=== PATIENT | female | born 1940 | race Hispanic/Latino ===

== ENCOUNTER 2017-07-29 08:48 | Emergency (ER) | payer MEDICARE ==
[~2017-07-29] VITALS: Ht 157.5 cm; Wt 174.6 kg
[2017-07-29] MEDS ORDERED: SODIUM CHLORIDE 0.9% 1000ML 1,000 ML IV STA (09:06)
[2017-07-29] MEDS ORDERED: ONDANSETRON HCL INJ 2 MG/ML VIAL IV STA (09:06)
[2017-07-29] MEDS ORDERED: MORPHINE SULFATE 4 MG/ML SYR IV ONE (09:15)
[2017-07-29 10:05] LABS: BASOPHILS % 0.1 % (0.0-1.0); EOSINOPHILS # (AUTO) 0.1 (0.0-0.4); EOSINOPHILS % 0.6 % (0.0-6.0); HEMATOCRIT 38.1 % (34.2-44.1); HEMOGLOBIN 12.4 g/dL (12.0-16.0); LYMPHOCYTES # (AUTO) 0.4 (1.0-3.2); LYMPHOCYTES % 2.8 % (18.0-39.1); MEAN CORPUSCULAR HEMOGLOBIN 31.2 pg (28-32); MEAN CORPUSCULAR HGB CONC 32.5 g/dL (31-35); MONOCYTES # (AUTO) 0.5 (0.2-0.8); MONOCYTES % 3.5 % (4.4-11.3); NEUTROPHILS # (AUTO) 12.3 (2.1-6.9); NEUTROPHILS % 91.3 % (38.7-80.0); PLATELET COUNT 307 x10e3/uL (140-360); RED BLOOD COUNT 3.97 x10e6/uL (3.6-5.1)
[2017-07-29] MEDS ORDERED: MORPHINE SULFATE 2 MG/ML SYR ONE (10:07)
[2017-07-29 10:21] LABS: ALBUMIN 3.5 g/dL (3.5-5.0); ALBUMIN/GLOBULIN RATIO 0.7 (0.8-2.0); ANION GAP 15.3 mmol/L (8-16); CALCIUM 9.6 mg/dL (8.4-10.2); POTASSIUM 4.3 mmol/L (3.5-5.1)
--- NOTE | 2017-07-29 11:12 | Diagnostic Imaging Report ---
PROCEDURE: A single AP view of the chest. COMPARISON: None. INDICATIONS: CHEST PAIN, EPIGASTRIC PAIN FINDINGS: Lines/tubes: None. Lungs: The lungs are well inflated. Central vascular congestion with diffuse interstitial opacities. Pleura: There is no pleural effusion or pneumothorax. Heart and mediastinum: Large 11.1 cm lucency overlying the cardiac silhouette likely representing a hiatal hernia. The cardiac silhouette is mildly enlarged. Bones: No acute bony abnormality. IMPRESSION: 1. Mild cardiomegaly with mild interstitial edema. 2. Large hiatal hernia. Dictated by: Buzz Benitez M.D. on 07/29/2017 at 11:22 Electronically approved by: Buzz Benitez M.D. on 07/29/2017 at 11:22
[2017-07-29 11:22] LABS: BILIRUBIN,URINE NEGATIVE (NEGATIVE); COLOR,URINE YELLOW (YELLOW); KETONES,URINE NEGATIVE (NEGATIVE); LEUKOCYTE ESTERASE ,URINE TRACE (NEGATIVE); NITRITE,URINE NEGATIVE (NEGATIVE); PROTEIN,URINE DIPSTICK NEGATIVE (NEGATIVE); URINE UROBILINOGEN 0.2 mg/dL (0.2 - 1)
[2017-07-29 11:32] LABS: CLARITY,URINE SL CLOUDY (CLEAR)
[2017-07-29 11:47] LABS: EPITHELIAL CELLS,URINE MODERATE /LPF
[2017-07-29 11:48] LABS: BACTERIA,URINE RARE /HPF; RBC,URINE 0-5 /HPF (0-5); TRANSITIONAL EPI CELLS,URINE RARE
--- NOTE | 2017-07-29 11:49 | Diagnostic Imaging Report ---
PROCEDURE: CT ABDOMEN AND PELVIS WITH CONTRAST TECHNIQUE: The abdomen and pelvis were scanned utilizing a multidetector helical scanner from the diaphragm to the lesser trochanter after the IV administration of 100 cc of Isovue 370 and the oral administration of water. Coronal and sagittal multiplanar reformations were obtained. DLP: 1507.7 mGy-cm COMPARISON: None. INDICATIONS: Abdomen pain FINDINGS: LOWER THORAX: Large hiatal hernia containing the gastric fundus. Adjacent left lower lobe atelectasis. HEPATOBILIARY: No focal hepatic lesions. No biliary ductal dilatation. The gallbladder is absent. SPLEEN: No splenomegaly. PANCREAS: No focal masses or ductal dilatation. ADRENALS: No adrenal nodules. KIDNEYS/URETERS: No hydronephrosis, stones, or solid mass lesions. PELVIC ORGANS/BLADDER: Unremarkable. PERITONEUM / RETROPERITONEUM: No free air or fluid. LYMPH NODES: No lymphadenopathy. VESSELS: Moderate scattered atherosclerotic calcifications. No abdominal aortic aneurysm. GI TRACT: No distention or wall thickening. The appendix is normal. Scattered colonic diverticula without evidence of diverticulitis. BONES AND SOFT TISSUES: Multilevel degenerative changes of the spine including large L1 inferior endplate and L4 superior endplate Schmorl's nodes. IMPRESSION: 1. No acute abnormalities. 2. Large hiatal hernia. 3. Colonic diverticula without evidence of diverticulitis. Dictated by: Buzz Benitez M.D. on 07/29/2017 at 11:58 Electronically approved by: Buzz Benitez M.D. on 07/29/2017 at 11:58
[2017-07-29 12:36] VITALS: BP 138/60
[2017-07-29] MEDS ORDERED: IOPAMIDOL 370 MG/ML 200 ML INFUS..BTL INJ ONE (19:47)
[2017-07-29] MEDS ORDERED: SODIUM CHLORIDE 0.9% 50ML 50 ML ONE (19:47)
== END 2017-07-29 12:50 | disposition home or self-care (01) ==
LOC: ER 08:48
DX: R10.9 Unspecified abdominal pain (principal); K44.9 Diaphragmatic hernia without obstruction or gangrene; K57.90 Diverticulosis of intestine, part unspecified, without perforation or abscess without bleeding; E86.0 Dehydration; I51.7 Cardiomegaly
CPT/HCPCS: 36415; 71045; 74177; 80053; 81001; 82550; 82553; 83690; 84484; 85025; 87086; 93005; 96360; 96374; 99284; J2270; J2405; J7030; Q9967

== ENCOUNTER 2018-05-11 12:15 | Emergency (ER) | payer MEDICARE, OTHER ==
[~2018-05-11] VITALS: Ht 162.6 cm; Wt 136.1 kg
[2018-05-11] MEDS ORDERED: TRAMADOL HCL 50 MG TAB PO ONE (12:30)
[2018-05-11] MEDS ORDERED: TRAMADOL HCL 50 MG TAB ONE (13:01)
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
[2018-05-11] MEDS ORDERED: ONDANSETRON HCL INJ 2 MG/ML VIAL IV STA (14:03)
[2018-05-11] MEDS ORDERED: MORPHINE SULFATE 2 MG/ML SYR IV STA (14:03)
[2018-05-11] MEDS ORDERED: SODIUM CHLORIDE 0.9% 1000ML 1,000 ML IV STA (14:03)
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
[2018-05-11 14:28] LABS: BASOPHILS # (AUTO) 0.1 (0.0-0.1); BASOPHILS % 0.4 % (0.0-1.0); EOSINOPHILS # (AUTO) 0.4 (0.0-0.4); EOSINOPHILS % 2.6 % (0.0-6.0); HEMATOCRIT 35.9 % (34.2-44.1); LYMPHOCYTES % 11.7 % (18.0-39.1); MEAN CORPUSCULAR HEMOGLOBIN 29.1 pg (28-32); MEAN CORPUSCULAR HGB CONC 30.6 g/dL (31-35); MONOCYTES # (AUTO) 1.1 (0.2-0.8); MONOCYTES % 6.6 % (4.4-11.3); NEUTROPHILS # (AUTO) 13.3 (2.1-6.9); NEUTROPHILS % 78.2 % (38.7-80.0); PLATELET COUNT 298 x10e3/uL (140-360); RED BLOOD COUNT 3.78 x10e6/uL (3.6-5.1); RED CELL DISTRIBUTION WIDTH 14.6 % (11.7-14.4)
[2018-05-11 14:58] LABS: ALBUMIN 3.6 g/dL (3.5-5.0); ALBUMIN/GLOBULIN RATIO 0.7 (0.8-2.0); ANION GAP 14.4 mmol/L (8-16); CALCIUM 10.1 mg/dL (8.4-10.2); CREATININE, SERUM 1.18 mg/dL (0.57-1.11); POTASSIUM 4.4 mmol/L (3.5-5.1)
[2018-05-11 15:05] LABS: CREATINE KINASE MB 1.8 ng/mL (0-5.0)
== END 2018-05-11 14:40 | disposition other institution (70) ==
LOC: ER 12:15
DX: M54.2 Cervicalgia (principal); S16.1XXA Strain of muscle, fascia and tendon at neck level, initial encounter; S20.211A Contusion of right front wall of thorax, initial encounter; S22.41XA Multiple fractures of ribs, right side, initial encounter for closed fracture; S70.01XA Contusion of right hip, initial encounter; S80.01XA Contusion of right knee, initial encounter; S90.31XA Contusion of right foot, initial encounter; V43.62XA Car passenger injured in collision with other type car in traffic accident, initial encounter; Y92.488 Other paved roadways as the place of occurrence of the external cause; I10 Essential (primary) hypertension; E11.9 Type 2 diabetes mellitus without complications; J45.909 Unspecified asthma, uncomplicated
CPT/HCPCS: 36415; 71250; 72125; 72192; 73030; 73562; 73610; 73630; 80053; 82550; 82553; 83690; 84484; 85025; 99284; J2270; J2405; J7030